=== PATIENT | male | born 1980 | race Hispanic/Latino ===

== ENCOUNTER → 2021-05-28 12:29 | Outpatient (CLI) | payer OTHER, SELFPAY ==
[2021-05-13 10:38] VITALS: BMI 31.1
--- NOTE | 2021-05-29 09:42 | PFT_ITS ---
INTRODUCTION: The patient is a 40-year-old male that presents for pulmonary function studies secondary to a diagnosis of chest pain. Respiratory therapy reported that the patient had difficulty understanding Upper Sorbian and therefore had difficulty with testing. Bronchodilators were used during testing. INTERPRETATION: Forced expiration spirometry demonstrates no evidence of a large airways obstructive ventilatory defect. There was no significant response to aerosolized bronchodilators. Spirograms are of suboptimal quality and terminate prior to 6 seconds, likely underestimating FVC. Body plethysmography was performed and reveals lung volumes to be within normal limits. Diffusing capacity by single breath CO is also within normal limits. IMPRESSION: Grossly normal pulmonary function studies. However, it should be noted that the patient had difficulty with testing.
== END ==
LOC: PSN 12:30
PROVIDERS: PCP Student in an Organized Health Care Education/Training Program; Referring Provider Internal Medicine Critical Care Medicine; Visit Provider Internal Medicine Critical Care Medicine
DX: R07.89 Other chest pain (principal)
CPT/HCPCS: 94060; 94726; 94729

== ENCOUNTER 2021-08-13 19:03 | Emergency (ER) | payer SELFPAY ==
[2021-08-13 19:04] VITALS: BP 151/93; PULSE 127; RESP 18; TEMP 36.2; O2SAT 97; BMI 37.4
--- NOTE | 2021-08-13 20:16 | EX.ED.DYSGE1 ---
HPI History of Present Illness Chief Complaint: Nausea/Vomiting/Diarrhea Detail of Chief Complaint: Vomiting and diarrhea that started around noon today Informant: patient and spouse/S.O. Narrative Narrative: Patient presents to the emergency department vomiting diarrhea this around noon. Patient also complains of a burning upper abdomen pain. Patient states that he ate some tamales last evening and this morning and not feel well at work. Around noon he came home and started vomiting. Patient's had Covid 2 weeks ago and had been fully immunized. Patient also is fully immunized. He has a mild cough. He denies fevers. He has had no prior abdominal surgeries. Prior similar symptoms: No PFSH PFSH Medical History (Reviewed 07/04/21 @ 14:23 by Kadi Pratt SOA INTEGRATION DEVELOPER, SOA INTEGRATION DEVELOPER-C) COVID-19 Diabetes Viral pneumonia Home Medications insulin NPH isoph U-100 human 100 unit/mL subcutaneous suspension See Rx Instructions SUBCUT BID 05/10/21 [History Last Taken Unknown] albuterol sulfate 90 mcg/actuation aerosol inhaler 2 puff INHALATION Q4H PRN #8.5 g 05/13/21 [Rx Last Taken Unknown] fluticasone 500 mcg-salmeterol 50 mcg/dose blistr powdr for inhalation 1 inh INHALATION BID #60 ea 07/04/21 [Rx Last Taken Unknown] ondansetron 4 mg PO Q8H PRN PRN #10 tab 08/13/21 [Rx Last Taken Unknown] Allergy/AdvReac Type Severity Reaction Status Date / Time No Known Allergies Allergy Unverified 08/13/21 19:05 Social History (Reviewed 07/04/21 @ 14:23 by Kadi Pratt SOA INTEGRATION DEVELOPER, SOA INTEGRATION DEVELOPER-C) Smoking Status: Never smoker ROS ROS ED Constitutional Constitutional ED: Reports systems reviewed and no addt'l complaints, except as documented; Denies body ache(s), change in weight or chills Eyes Eyes: Denies acute decrease in peripheral vision, change in vision, double vision or loss of vision ENT ENT ED: Reports none; Denies ear pain, lip swelling, loss taste/smell, neck pain, otalgia or sore throat Cardiovascular Cardiovascular: Reports none; Denies abdominal pain, chest pain with activity, leg edema, lightheadedness, palpitations, rapid heart rate or syncope Respiratory/Chest Respiratory/Chest: Reports none and cough; Denies change in mental status, dry cough, dyspnea, hemoptysis, shortness of breath at rest or shortness of breath with exertion Gastrointestinal Gastrointestinal: Reports none, abdominal pain, diarrhea, nausea and vomiting; Denies change in stool character, hematemesis, hematochezia, melena or rectal bleeding Genitourinary Genitourinary ED: Reports none; Denies abdominal discomfort, anuria, dysuria, genital pain or polyuria Musculoskeletal Musculoskeletal: Reports none; Denies arthralgias, back pain, difficulty walking, extremity pain, muscle weakness or myalgias Integumentary Reports none; Denies abscess or rash Neurologic Neurologic: Reports none; Denies abnormal gait, confusion, focal weakness, frequent falls, headache(s), loss of vision, numbness, paresthesias, radicular pain, vertigo or weakness Psychiatric Psychiatric: Reports systems reviewed and no addt'l complaints, except as documented and none; Denies behavioral changes, confusion, difficulty concentrating, hallucinations, suicidal ideation, tactile hallucinations or visual hallucinations Endocrine Endocrinology: Denies none, cold intolerance, excessive sweating, fatigue or heat intolerance Hematologic/Lymphatic Hematologic/Lymphatic: Reports none; Denies anemia, easy bleeding or easy bruising Allergic/Immunologic Allergic/Immunologic ED: Denies as per HPI, none, lip swelling, mouth swelling, throat swelling, tongue swelling or hives EXAM Physical Exam Const Vital Signs: 08/13/21 19:04 08/13/21 22:55 Temperature 97.1 F L Temperature Source Temporal Pulse Rate 127 H 120 H Respiratory Rate 18 18 Blood Pressure 151/93 H 126/83 H Blood Pressure Mean 112 97 Pulse Ox 97 98 Oxygen Delivery Method Room Air Room Air Positive well nourished and well developed General Appearance ED: well developed and NAD HEENT Reports TM's clear and moist mucous membranes normocephalic and atraumatic; Negative for trauma or tenderness Tympanic Membrane ED: Yes TM's clear Eyes PERRL and EOMs intact bilaterally General Eye ED: Negative for pale conjunctiva or scleral icterus Neck no lymphadenopathy, supple and no JVD General: Negative for tenderness Chest Wall inspection of chest normal and palpation of chest normal Chest: Negative for tenderness Resp normal respiratory effort and clear to auscultation bilaterally Effort and Inspection: Negative for respiratory distress or pain with movement Auscultation: Negative for rhonchi, wheezes or diminished lung sounds Cardio regular rate, regular rhythm, S1 normal heart sound, S2 normal heart sound and no murmurs Peripheral Pulses: pulses 2+ throughout GI normal to inspection, nondistended, normoactive bowel sounds, soft to palpation, non-tender, non-distended and no masses GI Narrative: Patient has tenderness in the epigastric region that is mild. There is mild guarding. There is no rebound, rigidity, or purulent signs. Negative Dasilva sign. No tenderness over McBurney's. Palpation: soft Back/Spine no CVA tenderness and no thoracic nor lumbar tenderness Extremity normal to inspection General Extremety ED: Negative for edema General Extremity: Negative for edema Neuro oriented x3, CN's II-XII intact bilaterally, no sensory deficits noted and gait normal Sensorium / Orientation: awake, alert, oriented to person, oriented to place and oriented to time Motor Exam: strength 5/5 throughout and strength abnormal Psych mental status grossly normal Skin no rashes or lesions noted and no wounds MDM MDM MDM Narrative Medical decision making narrative: IV line established on arrival. Patient was given normal saline and Zofran. Patient received a CT scan of the abdomen pelvis that showed a pancreatic cyst for which they recommended MRI as an outpatient. COVID-19 testing was negative. I suspect patient likely has a viral gastroenteritis. On repeat exam at 2345 he is feeling improved. Describes only minimal abdominal discomfort. 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 Patient is a known diabetic and has not been checking his blood sugars over the last week very much. He does have insulin to take at home. Patient will be given 10 units subcu of Humalog prior to discharge. Lab Data Attestation: I reviewed the patient's lab results. Labs: Laboratory Results - last 24 hr 08/13/21 08/13/21 08/13/21 20:05 20:05 20:25 WBC 15.0 H RBC 5.79 Hgb 16.4 Hct 47.2 MCV 81.5 MCH 28.3 MCHC 34.7 RDW Std Deviation 38.4 RDW Coeff of Donal 13.2 Plt Count 237 MPV 10.4 Immature Gran % (Auto) 0.500 Neut % (Auto) 93.4 H Lymph % (Auto) 3.7 L Patrick % (Auto) 2.1 Eos % (Auto) 0.0 Baso % (Auto) 0.3 Absolute Neuts (auto) 14.1 H Absolute Lymphs (auto) 0.55 L Nucleated RBC % 0 Differential Comment SEE COMMENT Platelet Estimate ADEQUATE Plt Morphology Comment LARGE RBC Morphology N CHROM Anisocytosis 1+ Microcytosis 1+ Sodium Cancelled Potassium Cancelled Chloride Cancelled Carbon Dioxide Cancelled Anion Gap Cancelled BUN Cancelled Creatinine Cancelled Estim Creat Clear Calc Cancelled Est GFR (MDRD) Af Amer Cancelled Est GFR (MDRD) Non-Af Cancelled BUN/Creatinine Ratio Cancelled Glucose Cancelled Lactic Acid 1.4 Calcium Cancelled Total Bilirubin Cancelled AST Cancelled ALT Cancelled Alkaline Phosphatase Cancelled Total Protein Cancelled Albumin Cancelled Globulin Cancelled Albumin/Globulin Ratio Cancelled Lipase Cancelled 08/13/21 21:03 WBC RBC Hgb Hct MCV MCH MCHC RDW Std Deviation RDW Coeff of Donal Plt Count MPV Immature Gran % (Auto) Neut % (Auto) Lymph % (Auto) Patrick % (Auto) Eos % (Auto) Baso % (Auto) Absolute Neuts (auto) Absolute Lymphs (auto) Nucleated RBC % Differential Comment Platelet Estimate Plt Morphology Comment RBC Morphology Anisocytosis Microcytosis Sodium 138 Potassium 4.3 Chloride 101 Carbon Dioxide 23.0 Anion Gap 14 BUN 29 H Creatinine 1.09 Estim Creat Clear Calc 64.64 Est GFR (MDRD) Af Amer 95 Est GFR (MDRD) Non-Af 78 BUN/Creatinine Ratio 26.6 H Glucose 429 H Lactic Acid Calcium 10.3 H Total Bilirubin 0.90 AST 30 ALT 48 Alkaline Phosphatase 134 H Total Protein 8.3 H Albumin 4.1 Globulin 4.2 Albumin/Globulin Ratio 1.0 Lipase 31 L Radiography Diagnostic Testing: Radiology Impression Abdomen/Pelvis CT 08/13/21 21:23 IMPRESSION: Indeterminate 2.6 x 1.2 x 2.6 cm cystic focus within the pancreatic tail, recommend MRI of the abdomen with contrast for further characterization. Fatty infiltration of the liver. Indeterminate groundglass opacities within the lower lobes, a nonspecific finding may be secondary to underlying edema and/or an infectious process. Electronically Signed: Alicia Pickens MD at 22:11 EDT Tel , Service support , Discharge Plan Triage Chief Complaint: Nausea/Vomiting/Diarrhea ED Provider: Fernandez Crandall Dx/Rx/DC Orders Clinical Impression: Viral gastroenteritis, Abdominal pain Prescriptions: New ondansetron [ondansetron] 4 MG tablet 4 mg PO Q8H PRN PRN (Reason: Nausea) Qty: 10 RF: 0 No Action Humulin N NPH U-100 Insulin 100 unit/mL suspension See Rx Instructions subcut BID RF: 0 albuterol sulfate 90 mcg/actuation HFA aerosol inhaler 2 puff inhalation Q4H PRN (Reason: shortness of breath or wheezing) Qty: 8.5 RF: 3 fluticasone propion-salmeterol [Wixela Inhub] 500-50 mcg/dose blister with device 1 inh inhalation BID Qty: 60 RF: 3 Primary Care Provider: Care Physician,No Primary Referrals: Navjot Dalal MD [STAFF PHYSICIAN] - 3-5 Days Care Physician,No Primary [Primary Care Provider] - Disposition Disposition: Home, Self Care
[2021-08-13 20:26] LABS: Absolute Lymphocyte Count 0.55 X10^3/uL (0.83-4.51); Absolute Neutrophil Count 14.1 X10^3/uL (2.0-7.7); Basophil# 0.04 X10^3/uL; Basophil% 0.3 % (0-1); Hematocrit 47.2 % (40-54); Hemoglobin 16.4 g/dL (13.0-16.5); Lymphocyte # 0.55 X10^3/ul (0.83-4.51); Lymphocyte % 3.7 % (19-41); Mean Corp Hgb Conc 34.7 g/dL (32-36); Mean Corpuscular Hgb 28.3 pg (27.0-32.0); Mean Corpuscular Volume 81.5 fL (80-94); Mean Platelet Vol. 10.4 fl (6.2-12.0); Monocyte# 0.31 X10^3/uL; Monocyte% 2.1 % (0-10); NRBC Flagged by Analyzer 0 % (0-5); Neutrophil # 14.05 X10^3/uL (2.7-7.7); Neutrophil % 93.4 % (47-70); POSITIVE DIFFERENTIAL YES; Platelet Count 237 K/mm3 (150-450); RBC Distribution Width CV 13.2 % (11.6-14.6); RBC Distribution Width SD 38.4 fl (35.1-43.9); Red Blood Count 5.79 M/mm3 (4.6-6.2)
[2021-08-13 20:28] LABS: Differential Indicated SCAN CRITERIA MET
[2021-08-13] MEDS: 0.9% Normal Saline 1,000 ML 1000 ML IV (20:29)
[2021-08-13] MEDS: Ondansetron 4 MG/2 ML Vial IV (20:29)
--- NOTE | 2021-08-13 21:23 | CT_ITS ---
STUDY: CT ABDOMEN AND PELVIS WITHOUT CONTRAST REASON FOR EXAM: Male, 41 years old. Abdominal pain RADIATION DOSAGE (If Supplied By Facility): CTDIvol = ( 8.87 ) mGy, DLP = ( 469.98 ) mGycm TECHNIQUE: Transaxial images were obtained from the dome of the diaphragm to the symphysis pubis without oral contrast, and without intravenous contrast. Sagittal and coronal images were reconstructed. Individualized dose optimization techniques were used for this CT. COMPARISON: None. FINDINGS: Motion artifact grades anatomic detail. There are groundglass opacities within the visualized lower lobes. The visualized portions of the heart are within normal limits. The lack of intravenous contrast limits evaluation of solid visceral organs. There is decreased attenuation of the liver consistent with steatosis. Normal gallbladder and extrahepatic biliary system. Normal spleen. Within the tail of the pancreas there is a 2.6 x 1.2 x 2.3 cm round low attenuation focus associated with scattered peripheral calcifications. There are scattered calcifications within the left posterior peritoneal cavity. Normal bilateral adrenal glands. Normal right kidney. Normal left kidney. Normal visualized stomach. Normal small intestine. Normal colon. The appendix is visualized and appears normal. Normal abdominal aorta. Normal inferior vena cava. Normal retroperitoneum. Normal urinary bladder. Normal abdominal wall. There are diffuse degenerative changes of the visualized lumbar spine. CT/Abdomen/Pelvis without Cont IMPRESSION: Indeterminate 2.6 x 1.2 x 2.6 cm cystic focus within the pancreatic tail, recommend MRI of the abdomen with contrast for further characterization. Fatty infiltration of the liver. Indeterminate groundglass opacities within the lower lobes, a nonspecific finding may be secondary to underlying edema and/or an infectious process. Electronically Signed: Alicia Pickens MD at 22:11 EDT Tel , Service support ,
[2021-08-13 21:28] LABS: Anisocytosis 1+; Microcytosis 1+; Platelet Estimate ADEQUATE (ADEQ); Platelet Morphology LARGE; Red Cell Morphology N CHROM NORMAL (NORM C&C)
[2021-08-13 21:34] LABS: Lactic Acid 1.4 mmol/L (0.4-1.9)
[2021-08-13 21:47] LABS: AST(SGOT) 30 U/L (15-37); Alanine Aminotransfer ALT/SGPT 48 U/L (16-61); Albumin, Serum 4.1 g/dL (3.2-5.0); Alkaline Phosphatase 134 U/L (45-117); Anion Gap 14 (5-15); BUN 29 mg/dL (7-18); BUN/Creat Ratio 26.6 RATIO (10-20); Calcium,Total 10.3 mg/dL (8.5-10.1); Chloride 101 mmol/L (98-107); Creatinine, Serum 1.09 mg/dL (0.70-1.30); EST Glomerular Filtration Rate 78 mL/min (>60); Est Glom Filt Rate - Afr Amer 95 mL/min (>60); Estimated Creatinine Clearance 64.64 ml/min; Globulin 4.2 g/dL (2.2-4.2); Glucose 429 mg/dL (74-106); Lipase 31 U/L (73-393); Potassium 4.3 mmol/L (3.5-5.1); Protein, Total 8.3 g/dL (6.4-8.2); Sodium Level 138 mmol/L (136-145)
[2021-08-13 22:55] VITALS: BP 126/83; PULSE 120; RESP 18; O2SAT 98
[2021-08-13] MEDS: Insulin Lispro 100 UNIT/ML INSULN.PEN 10 UNIT SC (23:54)
[2021-08-13 23:57] VITALS: BP 123/79; PULSE 89; RESP 15; O2SAT 99
== END 2021-08-13 23:57 | disposition home or self-care (01) ==
PROVIDERS: Emergency Provider Emergency Medicine
DX: A08.4 Viral intestinal infection, unspecified (principal); K86.2 Cyst of pancreas; K76.0 Fatty (change of) liver, not elsewhere classified; E11.9 Type 2 diabetes mellitus without complications; Z79.4 Long term (current) use of insulin; Z86.16 Personal history of COVID-19
CPT/HCPCS: 74176; 80053; 83605; 83690; 85025; 87426; 96361; 96374; 99283; J7030; A4216; J2405

== ENCOUNTER 2022-04-18 12:38 | Emergency (ER) | payer SELFPAY ==
[2022-04-18 12:40] VITALS: BP 146/80; PULSE 87; RESP 18; TEMP 36.1; O2SAT 97; BMI 34.7
--- NOTE | 2022-04-18 14:29 | EDS_ITS ---
HPI History of Present Illness Chief Complaint: Eye Problem Narrative Narrative: 40-year-old male presenting with eye irritation, redness, sneezing. Interpretation is by his who is Chadian-speaking. Patient states that he has not taken anything for allergies. He denies any injuries to his eyes. He is not had any crusting or weeping of his eyes. He does have blurry vision but states on 04/04/2022 he was seen by an supervisor [employer] and told he had diabetic retinopathy. He states that he was post to follow-up with a collection technician but this has not been done yet. Patient is in between having insurance cover his bills. [facility] Medical History Diabetes mellitus Leukocytosis (leucocytosis) Mediastinal lymphadenopathy Pneumonia Pulmonary embolism Home Medications loratadine [Claritin] 10 mg PO DAILY #30 tab 04/18/22 [Rx Last Taken Unknown] naphazoline-pheniramine [Allergy Eye (naphazoline-phen)] 1 drp EACH EYE BID PRN #15 ml 04/18/22 [Rx Last Taken Unknown] Allergy/AdvReac Type Severity Reaction Status Date / Time No Known Allergies Allergy Verified 04/18/22 12:40 Social History Smoking Status: Never smoker alcohol intake: never substance use type: does not use diet: diabetic do you feel safe at home: Yes ROS ROS ED Constitutional Constitutional ED: Denies chills or fever(s) Eyes Eyes: Reports other Details: Eye irritation, redness ENT ENT ED: Denies rhinorrhea or sore throat Cardiovascular Cardiovascular: Denies chest pain or palpitations Respiratory/Chest Respiratory/Chest: Denies cough or dyspnea Gastrointestinal Gastrointestinal: Denies abdominal pain or nausea Genitourinary Genitourinary ED: Denies dysuria or hematuria Musculoskeletal Musculoskeletal: Denies myalgias Integumentary Denies rash Neurologic Neurologic: Denies headache(s) or weakness Psychiatric Psychiatric: Denies anxiety or depression EXAM Physical Exam Const Vital Signs: 04/18/22 12:40 Temperature 96.9 F L Temperature Source Temporal Pulse Rate 87 Respiratory Rate 18 Blood Pressure 146/80 H Blood Pressure Mean 102 Pulse Ox 97 Oxygen Delivery Method Room Air Positive well nourished General Appearance ED: NAD Eyes General Eye ED: Yes normal appearance of both eyes and normal light reflex Visual Field: No peripheral vision loss, No central vision loss and No left visual field cut Eyelid: eyelids normal Conjunctiva: conjunctiva normal Sclera: sclera normal Cornea: cornea normal Pupil: PERRL and accommodation reflex normal Resp normal respiratory effort and clear to auscultation bilaterally Cardio regular rate and regular rhythm Neuro oriented x3 Sensorium / Orientation: alert Psych Mood & Affect: depressed Skin Lesions: no lesions Rashes: no rashes MDM MDM MDM Narrative Medical decision making narrative: Patient has known diabetic retinopathy. He is post follow-up with ophthalmology for this. He states he does not have a name for an collection technician and is currently not able to follow-up due to healthcare insurance issues. Patient was given an collection technician. It does sound like he is having some allergy symptoms as well so we will start him on Claritin and give him some eyedrops to help with irritation. Patient and are amenable to this. Patient stable for discharge. Impression: 1 diabetic retinopathy 2. Seasonal Lab Data Attestation: I reviewed the patient's lab results. Discharge Plan Triage Chief Complaint: Eye Problem Other Complaint: Headache ED Provider: Cory Rodriguez Dx/Rx/DC Orders Instructions: ED Diabetic Retinopathy, ED Seasonal Allergy Prescriptions: New loratadine [Claritin] 10 mg tablet 10 mg PO DAILY Qty: 30 RF: 0 Allergy Eye (naphazoline-phen) 0.025-0.3 % drops 1 drp EACH EYE BID PRN (Reason: eye irritation) Qty: 15 RF: 0 Primary Care Provider: Armando Godfrey Referrals: Armando Godfrey DO [Primary Care Provider] - Disposition Disposition: Home, Self Care
[2022-04-18 15:07] VITALS: BP 134/78; PULSE 78; RESP 14; TEMP 36.9; O2SAT 98
== END 2022-04-18 15:08 | disposition home or self-care (01) ==
LOC: ED 14:54
PROVIDERS: Emergency Provider Student in an Organized Health Care Education/Training Program; PCP Student in an Organized Health Care Education/Training Program; Visit Provider Student in an Organized Health Care Education/Training Program
DX: J30.2 Other seasonal allergic rhinitis (principal); E11.319 Type 2 diabetes mellitus with unspecified diabetic retinopathy without macular edema
CPT/HCPCS: 99282

== ENCOUNTER 2022-05-13 05:19 | Emergency (ER) | payer SELFPAY ==
[2022-05-13 05:21] VITALS: BP 126/86; PULSE 109; RESP 18; TEMP 36.4; O2SAT 96; BMI 35.6
--- NOTE | 2022-05-13 05:42 | EKG12_ITS ---
Test Reason : COUGH Blood Pressure : / mmHG Vent. Rate : 099 BPM Atrial Rate : 099 BPM P-R Int : 126 ms QRS Dur : 080 ms QT Int : 344 ms P-R-T Axes : 046 029 -01 degrees QTc Int : 441 ms Normal sinus rhythm Normal ECG Confirmed by GONZÁLEZ MAURICIO, CHIOMA ([id number]), writer editor JANETT JEFFERSON ([id number]) on 05/14/2022 10:00:05 AM Referred By: PL Confirmed By:CHIOMA CLAUDIO MD
--- NOTE | 2022-05-13 05:42 | RAD_ITS ---
STUDY: X-RAY CHEST REASON FOR EXAM: Male, 41 years old. cough TECHNIQUE: PA and lateral. COMPARISON: None. FINDINGS: LUNGS: No consolidation. No pneumothorax. MEDIASTINUM: Unremarkable. CARDIAC SILHOUETTE: Not enlarged. BONES AND SOFT TISSUES: No acute abnormalities. RAD/Chest PA and Lateral IMPRESSION: No evidence of active intrathoracic disease. Electronically Signed: Araceli Mcginnis MD at 6:32 EDT ,
--- NOTE | 2022-05-13 05:43 | EX.ED.DYSGE1 ---
HPI History of Present Illness Chief Complaint: Cold Sx Informant: patient Narrative Narrative: Patient presents with about 3 days of nonproductive cough sore throat sneezing and nasal congestion. Does not know if he has had fevers. No myalgias. No nausea vomiting diarrhea. No pains. No chest pain. No hemoptysis. No actual sputum production. His is having the same symptoms as he has. Nothing makes it better or worse but nothing has been tried. He has used inhalers before but does not have any now. He has heard some wheezing at times. [facility] Medical History COVID-19 Diabetes Diabetes mellitus Leukocytosis (leucocytosis) Mediastinal lymphadenopathy Pneumonia Pulmonary embolism Viral pneumonia Home Medications insulin NPH isoph U-100 human 100 unit/mL subcutaneous suspension See Rx Instructions SUBCUT BID 05/10/21 [History Last Taken Unknown] albuterol sulfate 90 mcg/actuation aerosol inhaler 2 puff INHALATION Q4H PRN #8.5 g 05/13/21 [Rx Last Taken Unknown] fluticasone 500 mcg-salmeterol 50 mcg/dose blistr powdr for inhalation 1 inh INHALATION BID #60 ea 07/04/21 [Rx Last Taken Unknown] ondansetron 4 mg PO Q8H PRN PRN #10 tab 08/13/21 [Rx Last Taken Unknown] loratadine [Claritin] 10 mg PO DAILY #30 tab 04/18/22 [Rx Last Taken Unknown] naphazoline-pheniramine [Allergy Eye (naphazoline-phen)] 1 drp EACH EYE BID PRN #15 ml 04/18/22 [Rx Last Taken Unknown] albuterol sulfate [Ventolin HFA] 2 puff INHALATION Q4H PRN PRN #1 inhaler 05/13/22 [Rx Last Taken Unknown] benzonatate 200 mg PO TID PRN PRN #20 cap 05/13/22 [Rx Last Taken Unknown] Allergy/AdvReac Type Severity Reaction Status Date / Time No Known Allergies Allergy Verified 05/13/22 05:21 Social History Smoking Status: Never smoker alcohol intake: never substance use type: does not use diet: diabetic do you feel safe at home: Yes ROS ROS ED Constitutional Constitutional ED: Denies fever(s) Eyes Eyes: Denies blurry vision ENT ENT ED: Reports rhinorrhea and sore throat; Denies ear pain Cardiovascular Cardiovascular: Denies chest pain or palpitations Respiratory/Chest Respiratory/Chest: Reports cough and other Details: Occasional wheezing ; Denies dyspnea or sputum Gastrointestinal Gastrointestinal: Denies abdominal pain, diarrhea, nausea or vomiting Genitourinary Genitourinary ED: Denies dysuria Musculoskeletal Musculoskeletal: Denies myalgias Integumentary Denies rash Neurologic Neurologic: Denies headache(s) Endocrine Endocrinology: Denies polydipsia or polyuria Allergic/Immunologic Allergic/Immunologic ED: Denies urticaria EXAM Physical Exam Const Vital Signs: 05/13/22 05:21 05/13/22 05:26 05/13/22 06:05 Temperature 97.6 F L Temperature Source Temporal Pulse Rate 109 H 80 Respiratory Rate 18 16 Respiratory Effort Normal Respiratory Depth Normal Respiratory Pattern Normal Blood Pressure 126/86 H Blood Pressure Mean 99 Pulse Ox 96 Oxygen Delivery Method Room Air Room Air Positive well nourished and well developed Constitutional Narrative: Patient does have a very frequent dry cough while I am in the room. General Appearance ED: well developed and NAD; Negative for cyanotic or diaphoretic HEENT Reports moist mucous membranes HEENT Narrative: Note Steve continues. He does have clear rhinorrhea. His throat is slightly erythematous but not enlarged and there is no exudate. Negative for trauma or tenderness Eyes PERRL and EOMs intact bilaterally Neck no JVD Chest Wall inspection of chest normal Resp normal respiratory effort Resp Narrative: Patient does have a frequent very dry cough. He has expiratory wheeze especially end expiratory and with any forced expiration. Auscultation: wheezes; Negative for rales or rhonchi Cardio regular rate and regular rhythm GI normal to inspection, nondistended, normoactive bowel sounds and non-tender Palpation: soft Back/Spine no CVA tenderness Extremity General Extremety ED: Negative for edema or tenderness General Extremity: Negative for edema Neuro Sensorium / Orientation: alert Psych mental status grossly normal Skin no rashes or lesions noted MDM MDM MDM Narrative Medical decision making narrative: COVID and influenza are negative. Chest x-ray shows no acute process. Patient feels better with a breathing treatment. Although he does not have a history of asthma he has used breathing treatments before when he is sick. I will get him something for his cough. We will get inhaler. We discussed reasons to return. I do not think he needs antibiotics now. Lab Data Attestation: I reviewed the patient's lab results. Radiography Diagnostic Testing: Clinical Impression(s) from Imaging Studies Chest X-Ray 05/13/22 05:42 IMPRESSION: No evidence of active intrathoracic disease. Electronically Signed: Araceli Mcginnis MD at 6:32 EDT , EKG Initial EKG: Comments: EKG done for cough and a 41-year-old male. EKG read by me shows normal sinus rhythm with overall rate of 99. No ectopy. No acute ST elevation or depression. DE interval, QRS Discharge Plan Triage Chief Complaint: Cold Sx ED Provider: Wally Colon Dx/Rx/DC Orders Clinical Impression: Viral URI with cough, Acute bronchospasm Instructions: ED URI, Viral W/ Wheezing (Adult) Prescriptions: New benzonatate [benzonatate] 100 MG capsule 200 mg PO TID PRN PRN (Reason: Cough) Qty: 20 RF: 0 albuterol sulfate [Ventolin HFA] 1 INHALER inhaler 2 puff inhalation Q4H PRN PRN (Reason: Wheezing) Qty: 1 RF: 0 No Action Humulin N NPH U-100 Insulin 100 unit/mL suspension See Rx Instructions subcut BID RF: 0 albuterol sulfate 90 mcg/actuation HFA aerosol inhaler 2 puff inhalation Q4H PRN (Reason: shortness of breath or wheezing) Qty: 8.5 RF: 3 fluticasone propion-salmeterol [Wixela Inhub] 500-50 mcg/dose blister with device 1 inh inhalation BID Qty: 60 RF: 3 ondansetron [ondansetron] 4 MG tablet 4 mg PO Q8H PRN PRN (Reason: Nausea) Qty: 10 RF: 0 loratadine [Claritin] 10 mg tablet 10 mg PO DAILY Qty: 30 RF: 0 Allergy Eye (naphazoline-phen) 0.025-0.3 % drops 1 drp EACH EYE BID PRN (Reason: eye irritation) Qty: 15 RF: 0 Primary Care Provider: Care Physician,No Primary Referrals: Fast,Perla, DO [NON-STAFF] - 3-5 Days if not improving Care Physician,No Primary [Primary Care Provider] - Disposition Disposition: Home, Self Care
[2022-05-13] MEDS: Ipratropium/Albuterol Sulfate 3 ML AMPUL.NEB INHALATION (06:01)
[2022-05-13 06:05] VITALS: PULSE 80; RESP 16
[2022-05-13 06:57] VITALS: PULSE 98; RESP 18; O2SAT 98
== END 2022-05-13 06:58 | disposition home or self-care (01) ==
PROVIDERS: Emergency Provider Emergency Medicine; Visit Provider Emergency Medicine
DX: J06.9 Acute upper respiratory infection, unspecified (principal); E11.9 Type 2 diabetes mellitus without complications; Z79.4 Long term (current) use of insulin; J98.01 Acute bronchospasm; Z86.16 Personal history of COVID-19
CPT/HCPCS: 71046; 87428; 93005; 94640; 99282

== ENCOUNTER 2022-06-24 06:56 | Emergency (ER) | payer OTHER, SELFPAY ==
[2022-06-24 06:58] VITALS: BP 176/85; PULSE 85; RESP 18; TEMP 35.8; O2SAT 98; BMI 37.2
--- NOTE | 2022-06-24 07:06 | CT_ITS ---
STUDY: CT BRAIN WITHOUT CONTRAST REASON FOR EXAM: Male, 42 years old. injury RADIATION DOSAGE (If Supplied By Facility): CTDIvol = ( 44.99 ) mGy, DLP = ( 796.11 ) mGycm TECHNIQUE: Transaxial CT imaging of the brain was performed without administration of intravenous contrast material. Individualized dose optimization techniques were used for this CT. COMPARISON: No relevant priors. FINDINGS: Small right frontal superficial scalp hematoma. Normal calvarium. Normal size ventricles and extra-axial spaces for the patient''s age. Normal white matter tracts of the cerebral hemispheres. Normal basal ganglia and thalami. Normal brainstem. Normal cerebellum. There is no intracranial hemorrhage. There are no findings of an acute ischemic infarction. Bilateral ethmoid and maxillary sinus mucoperiosteal thickening. Left maxillary posterior molar alveolar root odontogenic abscess is partially seen CT/Brain/Head without Contrast IMPRESSION: No evidence of acute intracranial hemorrhage or injury. Right posterior parietal small superficial scalp hematoma without underlying fracture. Scattered sinus disease. Left maxillary posterior molar alveolar root odontogenic abscess partially seen. Electronically Signed: Leopoldo Carver MD at 8:01 EDT ,
--- NOTE | 2022-06-24 07:06 | RAD_ITS ---
STUDY: X-RAY - LEFT FOOT CLINICAL: Male, 42 years old. injury. Bruising over entire leg. Run over by a tow mower TECHNIQUE: 3 view(s) of the foot. COMPARISON: Tibiofibular radiograph on same day. FINDINGS: Diffuse lower leg and ankle edema. Peripheral atherosclerosis. No fracture. No berny dislocation. No erosion. Mild first metatarsophalangeal joint degenerative change. RAD/Foot min 3 Views IMPRESSION: Lower leg and ankle edema. Peripheral atherosclerosis. No acute osseous finding. Electronically Signed: Leopoldo Carver MD at 8:17 EDT ,
--- NOTE | 2022-06-24 07:06 | RAD_ITS ---
STUDY: X-RAY - LEFT TIBIA AND FIBULA REASON FOR EXAM: Male, 42 years old. injury BRUISING OVER ENTIRE LEG, RUN OVER BY TOW MOTOR TECHNIQUE: 2 view(s) of the tibia and fibula were obtained. COMPARISON: None. FINDINGS: BONES: No fracture demonstrated. JOINTS: No dislocation. SOFT TISSUES: Soft tissue swelling especially about the ankle. Calcifications mainly anteriorly. RAD/Tibia & Fibula 2 Views IMPRESSION: Soft tissue swelling. No evidence of fracture. Electronically Signed: Araceli Mcginnis MD at 7:49 EDT ,
--- NOTE | 2022-06-24 07:07 | EX.ED.DYSGE1 ---
HPI History of Present Illness Chief Complaint: Lower Extremity Injury Informant: patient Onset/Context/Timing Onset: Today Current Severity: Moderate Maximum Severity: Moderate Narrative Narrative: Patient presents after injury at work. Patient states that he was hit in the back of the head by a tow motor causing him to fall. His left foot was caught and bent awkwardly. He has pain and swelling around his left ankle. [facility] Medical History COVID-19 Diabetes mellitus Pulmonary embolism Home Medications insulin NPH isoph U-100 human 100 unit/mL subcutaneous suspension (Humulin N NPH U-100 Insulin (isophane susp)) See Rx Instructions subcut BID 05/10/21 [History Last Taken Unknown] albuterol sulfate 90 mcg/actuation aerosol inhaler 2 puff inhalation Q4H PRN shortness of breath or wheezing #8.5 grams 05/13/21 [Rx Last Taken Unknown] fluticasone 500 mcg-salmeterol 50 mcg/dose blistr powdr for inhalation (Wixela Inhub) 1 inh inhalation BID #60 ea 07/04/21 [Rx Last Taken Unknown] ondansetron 4 mg disintegrating tablet 4 mg PO Q8H PRN PRN Nausea #10 tabs 08/13/21 [Rx Last Taken Unknown] loratadine 10 mg tablet (Claritin) 10 mg PO DAILY #30 tabs 04/18/22 [Rx Last Taken Unknown] naphazoline 0.025 %-pheniramine 0.3 % eye drops (Allergy Eye (naphazoline-pheniramine)) 1 drp EACH EYE BID PRN eye irritation #15 mL 04/18/22 [Rx Last Taken Unknown] albuterol sulfate 90 mcg/actuation aerosol inhaler (Ventolin HFA) 2 puff inhalation Q4H PRN PRN Wheezing ##1 05/13/22 [Rx Last Taken Unknown] benzonatate 100 mg capsule 200 mg PO TID PRN PRN Cough #20 caps 05/13/22 [Rx Last Taken Unknown] hydrocodone-acetaminophen 5-325mg 5mg-325mg 1 tab PO Q6H PRN pain 3 days #10 tabs 06/24/22 [Rx Last Taken Unknown] naproxen 500 mg tablet (Naprosyn) 500 mg PO BID PRN pain #20 tabs 06/24/22 [Rx Last Taken Unknown] Allergy/AdvReac Type Severity Reaction Status Date / Time No Known Allergies Allergy Verified 05/13/22 05:21 Social History Smoking Status: Never smoker alcohol intake: never substance use type: does not use diet: diabetic do you feel safe at home: Yes ROS ROS ED Constitutional Constitutional ED: Denies chills or fever(s) Eyes Eyes: Denies change in vision or discharge from eye(s) ENT ENT ED: Denies discharge from eye(s), rhinorrhea or sore throat Cardiovascular Cardiovascular: Denies chest pain or palpitations Respiratory/Chest Respiratory/Chest: Denies cough or dyspnea Gastrointestinal Gastrointestinal: Denies abdominal pain, diarrhea, nausea or vomiting Genitourinary Genitourinary ED: Denies difficulty urinating or dysuria Musculoskeletal Musculoskeletal: Reports extremity pain; Denies back pain Integumentary Denies Abrasions or rash Neurologic Neurologic: Reports headache(s); Denies weakness Allergic/Immunologic Allergic/Immunologic ED: Denies lip swelling or urticaria EXAM Physical Exam Const Vital Signs: 06/24/22 06:58 06/24/22 10:20 Temperature 96.4 F L Temperature Source Temporal Pulse Rate 85 72 Respiratory Rate 18 15 Blood Pressure 176/85 H 124/69 H Blood Pressure Mean 115 Pulse Ox 98 96 Oxygen Delivery Method Room Air Positive well nourished and well developed General Appearance ED: well developed HEENT Reports normocephalic and head/scalp atraumatic Eyes PERRL and EOMs intact bilaterally Neck supple Chest Wall inspection of chest normal and palpation of chest normal Resp normal respiratory effort and clear to auscultation bilaterally Cardio regular rate and regular rhythm GI normal to inspection, nondistended, normoactive bowel sounds Palpation: soft Back/Spine Negative for no CVA tenderness Extremity Extremity Narrative: Edema tenderness palpation around the left ankle. Mild tenderness over the foot. Strong distal pulses. No tenderness of the left knee. Neuro oriented x3 and no sensory deficits noted Sensorium / Orientation: alert Psych mental status grossly normal Skin no rashes or lesions noted MDM MDM MDM Narrative Medical decision making narrative: Patient given [place] for pain. CT scan of the head obtained along with left tib-fib and left foot x-rays. Lab Data Attestation: I reviewed the patient's lab results. Radiography Diagnostic Testing: Clinical Impression(s) from Imaging Studies Brain CT 06/24/22 07:06 IMPRESSION: No evidence of acute intracranial hemorrhage or injury. Right posterior parietal small superficial scalp hematoma without underlying fracture. Scattered sinus disease. Left maxillary posterior molar alveolar root odontogenic abscess partially seen. Electronically Signed: Leopoldo Carver MD at 8:01 EDT , Foot X-Ray 06/24/22 07:06 IMPRESSION: Lower leg and ankle edema. Peripheral atherosclerosis. No acute osseous finding. Electronically Signed: Leopoldo Carver MD at 8:17 EDT , Tibia/Fibula X-Ray 06/24/22 07:06 IMPRESSION: Soft tissue swelling. No evidence of fracture. Electronically Signed: Araceli Mcginnis MD at 7:49 EDT , Treatment and Re-Evaluation Narrative: CT scan of the head reveals small superficial scalp hematoma with no underlying fracture. No acute intracranial abnormality. Foot and lower leg x-rays obtained and per my interpretation reveal no obvious fracture. Radiology interpretation is reviewed and concurs. Test results discussed with the patient. He is written for Naprosyn with [employer] for breakthrough pain at home. He is placed in a walking boot and given crutches. He will follow-up with corporate care. Discharge Plan Triage Chief Complaint: Lower Extremity Injury ED Provider: Fozia Gibbs Dx/Rx/DC Orders Clinical Impression: Left ankle sprain, Closed head injury Instructions: ED Head Injury (Adult), ED Ankle Sprain (Adult) Prescriptions: New naproxen [Naprosyn] 500 mg tablet 500 mg PO BID PRN (Reason: pain) Qty: 20 0RF hydrocodone-acetaminophen 5-325 mg tablet 1 tab PO Q6H PRN (Reason: pain) 3 Days Qty: 10 0RF No Action Humulin N NPH U-100 Insulin 100 unit/mL suspension See Rx Instructions subcut BID Rx Instructions: 28 units QAM 25 units Qpm subcut twice a day; albuterol sulfate 90 mcg/actuation HFA aerosol inhaler 2 puff inhalation Q4H PRN (Reason: shortness of breath or wheezing) Qty: 8.5 3RF fluticasone propion-salmeterol [Wixela Inhub] 500-50 mcg/dose blister with device 1 inh inhalation BID Qty: 60 3RF ondansetron [ondansetron] 4 MG tablet 4 mg PO Q8H PRN PRN (Reason: Nausea) Qty: 10 0RF loratadine [Claritin] 10 mg tablet 10 mg PO DAILY Qty: 30 0RF Allergy Eye (naphazoline-phen) 0.025-0.3 % drops 1 drp EACH EYE BID PRN (Reason: eye irritation) Qty: 15 0RF benzonatate [benzonatate] 100 MG capsule 200 mg PO TID PRN PRN (Reason: Cough) Qty: 20 0RF albuterol sulfate [Ventolin HFA] 1 INHALER inhaler 2 puff inhalation Q4H PRN PRN (Reason: Wheezing) Qty: 1 0RF Stand Alone Forms: Work Status Form Primary Care Provider: Care Physician,No Primary Referrals: Corporate,Care [GROUP OF PHYSICIANS] - 2 Days Care Physician,No Primary [Primary Care Provider] - Disposition Disposition: Home, Self Care Discharge Date/Time: 06/24/22 10:21
[2022-06-24] MEDS: HYDROcodone Bitartrate/Apap 5/325 Tablet PO (07:17)
[2022-06-24 10:20] VITALS: BP 124/69; PULSE 72; RESP 15; O2SAT 96
== END 2022-06-24 10:21 | disposition home or self-care (01) ==
PROVIDERS: Emergency Provider Emergency Medicine; Visit Provider Emergency Medicine
DX: S93.402A Sprain of unspecified ligament of left ankle, initial encounter (principal); E11.9 Type 2 diabetes mellitus without complications; Z79.4 Long term (current) use of insulin; S00.03XA Contusion of scalp, initial encounter; W31.89XA Contact with other specified machinery, initial encounter; Y99.0 Civilian activity done for income or pay; Z86.16 Personal history of COVID-19
CPT/HCPCS: 70450; 73590; 73630; 99283; J7030; A4216

== ENCOUNTER 2022-07-04 09:24 | Emergency (ER) | payer OTHER, SELFPAY ==
[2022-07-04 09:25] VITALS: BP 159/76; PULSE 87; RESP 18; TEMP 36.4; O2SAT 99; BMI 36.6
--- NOTE | 2022-07-04 10:17 | ED.VIS.LOWEX ---
HPI History of Present Illness Chief Complaint: Wound Detail of Chief Complaint: wound pain/redness Informant: patient and family Onset/Context/Timing Onset: Days (3) Context: Gradual Onset Current Severity: Moderate Maximum Severity: Moderate Worsened by: walking, palpation Relieved by: leaving alone, rest Associated Symptoms Associated Symptoms: Negative for Parasthesia, Weakness or Loss of Funtion Narrative Narrative: Patient had an injury at work around 2 weeks ago, a tow motor/forklift accidentally struck him in the leg sustaining a wound, and he injured his ankle, he thinks it was sprained he states it was not broken, he was seen here. He is in a boot. He has been having pain ever since the accident in the leg and ankle, but it has been hurting more around the wound, which is posterior, along with redness and swelling for the past 3 days. There has been no drainage, bleeding, or fever or systemic symptoms. [facility] Medical History COVID-19 Diabetes mellitus Pulmonary embolism Home Medications insulin NPH isoph U-100 human 100 unit/mL subcutaneous suspension (Humulin N NPH U-100 Insulin (isophane susp)) See Rx Instructions subcut BID 05/10/21 [History Last Taken Unknown] albuterol sulfate 90 mcg/actuation aerosol inhaler 2 puff inhalation Q4H PRN shortness of breath or wheezing #8.5 grams 05/13/21 [Rx Last Taken Unknown] fluticasone 500 mcg-salmeterol 50 mcg/dose blistr powdr for inhalation (Wixela Inhub) 1 inh inhalation BID #60 ea 07/04/21 [Rx Last Taken Unknown] ondansetron 4 mg disintegrating tablet 4 mg PO Q8H PRN PRN Nausea #10 tabs 08/13/21 [Rx Last Taken Unknown] loratadine 10 mg tablet (Claritin) 10 mg PO DAILY #30 tabs 04/18/22 [Rx Last Taken Unknown] naphazoline 0.025 %-pheniramine 0.3 % eye drops (Allergy Eye (naphazoline-pheniramine)) 1 drp EACH EYE BID PRN eye irritation #15 mL 04/18/22 [Rx Last Taken Unknown] albuterol sulfate 90 mcg/actuation aerosol inhaler (Ventolin HFA) 2 puff inhalation Q4H PRN PRN Wheezing ##1 05/13/22 [Rx Last Taken Unknown] benzonatate 100 mg capsule 200 mg PO TID PRN PRN Cough #20 caps 05/13/22 [Rx Last Taken Unknown] naproxen 500 mg tablet (Naprosyn) 500 mg PO BID PRN pain #20 tabs 06/24/22 [Rx Last Taken Unknown] cephalexin 500 mg capsule 500 mg PO Q6 #40 CAPSULES 07/04/22 [Rx Last Taken Unknown] hydrocodone-acetaminophen 5-325mg 5mg-325mg 1 tab PO Q6H PRN pain 3 days #10 tabs 07/04/22 [Rx Last Taken Unknown] Allergy/AdvReac Type Severity Reaction Status Date / Time No Known Allergies Allergy Verified 05/13/22 05:21 Social History Smoking Status: Never smoker alcohol intake: never substance use type: does not use diet: diabetic do you feel safe at home: Yes ROS ROS ED Constitutional Constitutional ED: Denies chills or fever(s) Musculoskeletal Musculoskeletal: Reports extremity pain; Denies neck pain Integumentary Reports wounds; Denies Abrasions or rash Neurologic Neurologic: Denies paresthesias or weakness EXAM Physical Exam Const Vital Signs: 07/04/22 09:25 Temperature 97.6 F L Temperature Source Temporal Pulse Rate 87 Respiratory Rate 18 Blood Pressure 159/76 H Blood Pressure Mean 103 Pulse Ox 99 Oxygen Delivery Method Room Air Positive well nourished and well developed General Appearance ED: well developed and NAD Neck full ROM and supple Back/Spine normal ROM and normal to inspection Extremity Extremity Narrative: There is a scabbed wound without an abscess or localized swelling posteriorly left lower leg, about 6 cm proximal to the ankle. It is nontender. However, medially and anterior about the lower leg from this wound there is warm redness without any fluctuance or signs of an abscess that is very tender. No lymphangitis. He can move the ankle after I remove the boot without significant discomfort in the joint. There is no inguinal lymphadenopathy. There are no other areas of warm erythema. Good sensation in all toes with brisk cap refill. Neuro oriented x3, no focal motor deficits and no sensory deficits noted Sensorium / Orientation: alert Psych mental status grossly normal and thought process normal Skin Skin Narrative: See extremity exam for wound description. No abscesses left lower extremity. Rashes: no rashes MDM MDM MDM Narrative Medical decision making narrative: This appears to be an early cellulitis related to this wound. There is no abscess and nothing that needs drained. I am giving him an injection of Ancef here followed by Timothy and he can follow-up with [employer]. where he is already established. The patient does speak Hungarian and Indonesian as does his family member, I am not fluent in Hungarian but I speak enough that we all understood each other and all questions were answered in addition to a request for some more pain medication hydrocodone which was helping and he is out of. I asked them if they felt we needed an engineering group manager and they said no. I baljit a line around the erythematous area with a skin marking pen. Discharge Plan Triage Chief Complaint: Wound ED Provider: Willie Avendano Dx/Rx/DC Orders Clinical Impression: Cellulitis of left leg Instructions: ED Cellulitis Prescriptions: New cephalexin [cephalexin] 500 mg capsule 500 mg PO Q6 Qty: 40 0RF Continued Humulin N NPH U-100 Insulin 100 unit/mL suspension See Rx Instructions subcut BID Rx Instructions: 28 units QAM 25 units Qpm subcut twice a day; albuterol sulfate 90 mcg/actuation HFA aerosol inhaler 2 puff inhalation Q4H PRN (Reason: shortness of breath or wheezing) Qty: 8.5 3RF fluticasone propion-salmeterol [Wixela Inhub] 500-50 mcg/dose blister with device 1 inh inhalation BID Qty: 60 3RF ondansetron 4 MG tablet 4 mg PO Q8H PRN PRN (Reason: Nausea) Qty: 10 0RF loratadine [Claritin] 10 mg tablet 10 mg PO DAILY Qty: 30 0RF Allergy Eye (naphazoline-phen) 0.025-0.3 % drops 1 drp EACH EYE BID PRN (Reason: eye irritation) Qty: 15 0RF benzonatate 100 MG capsule 200 mg PO TID PRN PRN (Reason: Cough) Qty: 20 0RF albuterol sulfate [Ventolin HFA] 1 INHALER inhaler 2 puff inhalation Q4H PRN PRN (Reason: Wheezing) Qty: 1 0RF naproxen [Naprosyn] 500 mg tablet 500 mg PO BID PRN (Reason: pain) Qty: 20 0RF hydrocodone-acetaminophen 5-325 mg tablet 1 tab PO Q6H PRN (Reason: pain) 3 Days Qty: 10 0RF Primary Care Provider: Care Physician,No Primary Referrals: Corporate,Care [GROUP OF PHYSICIANS] - 2 Days for wound check Care Physician,No Primary [Primary Care Provider] - Disposition Disposition: Home, Self Care
[2022-07-04] MEDS: Cefazolin 1 GM/5 ML Vial IM (11:40)
--- NOTE | 2022-07-04 11:42 | ED.RN ---
Significant delay in receiving ancef from pharmacy, when called and checked on medication was being reconstituted and was taking time to do so. Patient aware of delay
== END 2022-07-04 12:03 | disposition home or self-care (01) ==
PROVIDERS: Emergency Provider Emergency Medicine; Visit Provider Emergency Medicine
DX: L03.116 Cellulitis of left lower limb (principal); E11.9 Type 2 diabetes mellitus without complications; Z79.4 Long term (current) use of insulin; Z86.16 Personal history of COVID-19
CPT/HCPCS: 96372; 99282

== ENCOUNTER → 2022-07-07 | Outpatient (CLI) | payer OTHER, SELFPAY ==
--- NOTE | 2022-07-07 16:01 | VDLE_ITS ---
Reason For Study: Swelling Procedure LEFT This is a venous duplex using B-mode, color GSV is normal. flow and spectral Doppler. CFV is compressible, spontaneous, phasic, Exam performed in department. competent, and demonstrates normal A preliminary report was called and/or faxed augmentation. to [facility]. FV is compressible, spontaneous, phasic, competent and demonstrates normal augmentation. POP V is compressible, spontaneous, phasic, competent and demonstrates normal augmentation. T/P Trunk is compressible. PTV is compressible. LT PerV is compressible. Nonvascularized structure noted in the distal calf at area of injury. VL/Venous Duplex US, Unilateral Interpretation Summary Deep veins of the left lower extremity are patent and compressible segmentally. There is no evidence of left lower extremity deep vein thrombosis. Valvular competence appears intac t within the proximal deep venous system on the left . The left great saphenous vein appears patent a nd compressible segmentally. A non-vascular structure is noted in the left distal calf, which m ay represent a hematoma. Clinical correlation is advised. Ordering Physician: Efrem Rhodes Performed By: Margie Swanson RVT
== END | disposition home or self-care (01) ==
PROVIDERS: Referring Provider Emergency Medicine; Visit Provider Emergency Medicine
DX: R60.0 Localized edema (principal); L03.116 Cellulitis of left lower limb
CPT/HCPCS: 93971

== ENCOUNTER → 2022-08-26 | Outpatient (CLI) | payer OTHER, SELFPAY ==
--- NOTE | 2022-08-26 13:54 | VDLE_ITS ---
Reason For Study: Cellulitis LLE Procedure LEFT This is a venous duplex using B-mode, color GSV is normal. flow and spectral Doppler. CFV is compressible, spontaneous, phasic, Exam performed in department. competent, and demonstrates normal A preliminary report was called and/or faxed augmentation. to [facility]. FV is compressible, spontaneous, phasic, competent and demonstrates normal augmentation. POP V is compressible, spontaneous, phasic, competent and demonstrates normal augmentation. T/P Trunk is compressible. PTV is compressible. LT PerV is compressible. VL/Venous Duplex US, Unilateral Interpretation Summary Deep veins of the left lower extremity are patent and compressible segmentally. There is no evidence of left lower extremity deep vein thrombosis. Valvular competence appears intac t within the proximal deep venous system on the left . The left great saphenous vein appears patent a nd compressible segmentally. Ordering Physician: Hussein Wolfe Performed By: Margie Swanson RVT
== END | disposition home or self-care (01) ==
PROVIDERS: Referring Provider Family Medicine; Visit Provider Family Medicine
DX: L03.116 Cellulitis of left lower limb (principal)
CPT/HCPCS: 93971

== ENCOUNTER → 2022-09-02 | Outpatient (CLI) | payer OTHER, SELFPAY ==
[2022-09-02 15:11] LABS: Absolute Lymphocyte Count 1.13 X10^3/uL (0.83-4.51); Absolute Neutrophil Count 5.8 X10^3/uL (2.0-7.7); Basophil# 0.02 X10^3/uL; Basophil% 0.3 % (0-1); Eosinophil# 0.42 X10^3/uL; Eosinophils% 5.3 % (0-5); Hematocrit 41.9 % (40-54); Lymphocyte # 1.13 X10^3/ul (0.83-4.51); Lymphocyte % 14.1 % (19-41); Mean Corp Hgb Conc 33.4 g/dL (32-36); Mean Corpuscular Hgb 27.7 pg (27.0-32.0); Mean Corpuscular Volume 82.8 fL (80-94); Mean Platelet Vol. 9.1 fl (6.2-12.0); Monocyte# 0.63 X10^3/uL; Monocyte% 7.9 % (0-10); NRBC Flagged by Analyzer 0 % (0-5); Neutrophil # 5.75 X10^3/uL (2.7-7.7); Neutrophil % 71.9 % (47-70); Platelet Count 263 K/mm3 (150-450); RBC Distribution Width CV 14.2 % (11.6-14.6); RBC Distribution Width SD 42.7 fl (35.1-43.9); Red Blood Count 5.06 M/mm3 (4.6-6.2)
[2022-09-02 15:34] LABS: ALB/GLOB Ratio 0.7 RATIO (0.9-2.4); AST(SGOT) 32 U/L (15-37); Alanine Aminotransfer ALT/SGPT 49 U/L (16-61); Albumin, Serum 2.9 g/dL (3.2-5.0); Alkaline Phosphatase 159 U/L (45-117); Anion Gap 7 (5-15); BUN 15 mg/dL (7-18); BUN/Creat Ratio 17.5 RATIO (10-20); Calcium,Total 8.9 mg/dL (8.5-10.1); Chloride 107 mmol/L (98-107); Cholesterol 167 mg/dL (200); Creatinine, Serum 0.86 mg/dL (0.70-1.30); EST Glomerular Filtration Rate 103 mL/min (>60); Est Glom Filt Rate - Afr Amer 125 mL/min (>60); Globulin 4.3 g/dL (2.2-4.2); Glucose 226 mg/dL (74-106); High Density Lipoprotein 40 mg/dL; Potassium 4.1 mmol/L (3.5-5.1); Protein, Total 7.2 g/dL (6.4-8.2); Sodium Level 140 mmol/L (136-145); Triglycerides 152 mg/dL; Very Low Density Lipoprotein 30 mg/dL (5-40)
== END | disposition home or self-care (01) ==
LOC: BIMLAB 13:40
PROVIDERS: PCP Internal Medicine; Referring Provider Internal Medicine; Visit Provider Internal Medicine
DX: E11.9 Type 2 diabetes mellitus without complications (principal)
CPT/HCPCS: 36415; 80053; 80061; 85025

== ENCOUNTER → 2022-09-10 | Outpatient (CLI) | payer OTHER, SELFPAY ==
--- NOTE | 2022-09-10 15:15 | CT_ITS ---
EXAM: CT LEFT LOWER EXTREMITY WITHOUT INTRAVENOUS CONTRAST CLINICAL INDICATION: Left Calf Swelling. Abnormal Duplex TECHNIQUE: Helically acquired images were obtained of the left lower extremity without intravenous contrast. 2-D reformats were performed by the technologist. This CT exam was performed using one or more of the following dose reduction techniques: automated exposure control, adjustment of the mA and/or kV according to patient size, and/or use of iterative reconstruction technique. This report was created using [employer] report generation technology. CONTRAST: IV 100mL Isovue-300 COMPARISON: None. FINDINGS: BONES/JOINTS: There are no osseous abnormalities. No acute fracture. No subluxation. Normal alignment. Preservation of the joint space. No sclerotic or destructive changes. SOFT TISSUES: There is edema in the subcutaneous tissues over the knee and lower leg. There is no focal fluid collection or mass. There are no abnormalities within the muscles. There are several varices in the subcutaneous tissues of the lower leg. No radiopaque foreign body. CT/Extremity Lower WITH Contrast IMPRESSION: Edema in the subcutaneous tissues over the knee and lower leg. There are subcutaneous varices in the lower leg. No osseous abnormalities are identified. There are no masses or focal fluid collections. Electronically Signed: Harrison Reyes MD at 20:38 EDT ,
== END | disposition home or self-care (01) ==
PROVIDERS: PCP Internal Medicine; Referring Provider Internal Medicine; Visit Provider Internal Medicine
DX: M79.89 Other specified soft tissue disorders (principal); R93.6 Abnormal findings on diagnostic imaging of limbs; M79.662 Pain in left lower leg
CPT/HCPCS: 73701; Q9967

== ENCOUNTER → 2022-10-01 | Outpatient (CLI) | payer OTHER, SELFPAY ==
[2022-10-01 17:02] LABS: Anion Gap 4 (5-15); BUN 22 mg/dL (7-18); BUN/Creat Ratio 31.7 RATIO (10-20); Calcium,Total 8.9 mg/dL (8.5-10.1); Chloride 107 mmol/L (98-107); EST Glomerular Filtration Rate 131 mL/min (>60); Est Glom Filt Rate - Afr Amer 159 mL/min (>60); Glucose 54 mg/dL (74-106); Potassium 3.8 mmol/L (3.5-5.1); Sodium Level 138 mmol/L (136-145)
== END | disposition home or self-care (01) ==
LOC: BIMLAB 15:58
PROVIDERS: PCP Internal Medicine; Referring Provider Internal Medicine; Visit Provider Internal Medicine
DX: E11.9 Type 2 diabetes mellitus without complications (principal); I10 Essential (primary) hypertension
CPT/HCPCS: 36415; 80048

== ENCOUNTER → 2023-04-15 | Outpatient (CLI) | payer MEDICAID, SELFPAY ==
[2023-04-15 15:35] LABS: ALB/GLOB Ratio 0.7 RATIO (0.9-2.4); AST(SGOT) 18 U/L (15-37); Alanine Aminotransfer ALT/SGPT 33 U/L (16-61); Albumin, Serum 2.7 g/dL (3.2-5.0); Alkaline Phosphatase 154 U/L (45-117); Anion Gap 4 (5-15); BUN 25 mg/dL (7-18); BUN/Creat Ratio 25.5 RATIO (10-20); Calcium,Total 8.6 mg/dL (8.5-10.1); Chloride 109 mmol/L (98-107); Creatinine, Serum 0.98 mg/dL (0.70-1.30); EST Glomerular Filtration Rate 88 mL/min (>60); Est Glom Filt Rate - Afr Amer 107 mL/min (>60); Globulin 4.1 g/dL (2.2-4.2); Glucose 292 mg/dL (74-106); Potassium 4.5 mmol/L (3.5-5.1); Protein, Total 6.8 g/dL (6.4-8.2); Sodium Level 138 mmol/L (136-145)
[2023-04-15 15:56] LABS: Hemoglobin A1c 9.2 % (3.8-5.6)
[2023-04-15 16:41] LABS: Microalbumin:Creatinine Ratio 2677.2 mg/g CRE (<30 mg/g CRE)
== END | disposition home or self-care (01) ==
PROVIDERS: PCP Internal Medicine; Referring Provider Internal Medicine; Visit Provider Internal Medicine
DX: E11.9 Type 2 diabetes mellitus without complications (principal)
CPT/HCPCS: 36415; 80053; 82043; 82570; 83036

== ENCOUNTER 2023-04-16 10:17 | Emergency (ER) | payer MEDICAID, SELFPAY ==
[2023-04-16 10:17] VITALS: BP 165/80; PULSE 90; RESP 20; TEMP 36.2; O2SAT 97; BMI 35.0
--- NOTE | 2023-04-16 11:25 | RAD_ITS ---
STUDY: X-RAY CHEST REASON FOR EXAM: Male, 42 years old. Cough, fever TECHNIQUE: PA and lateral views of the chest. COMPARISON: Comparison is made with prior study dated May 13, 2022. FINDINGS: Limited inspiratory effort. Increased markings at the lung bases suggestive of a bibasilar atelectasis and/or early infiltrates. Follow-up is recommended. There is no demonstrated pleural abnormality. Normal size heart. Normal mediastinum and yury. Normal visualized pulmonary arteries. Normal visualized aortic arch and descending thoracic aorta. Normal visualized thoracic spine. Normal visualized ribs, clavicles, and shoulders. There is no demonstrated abnormality of the visualized soft tissue structures of the upper abdomen. RAD/Chest PA and Lateral IMPRESSION: Limited inspiratory effort with increased markings at the lung bases suggestive of mild atelectasis and/or early infiltrate. Follow-up recommended. Electronically Signed: Ori Mcknight MD at 11:40 EDT ,
--- NOTE | 2023-04-16 13:09 | EDS_ITS ---
HPI HPI - URI History of Present Illness Chief Complaint: Cold Sx Informant: patient Narrative Narrative: Patient complaining of respiratory infection symptoms for about 10 or 11 days. He was sick and now his has the same thing they are both patient is here to be seen. He has had subjective fevers and chills, headaches, sore throat, cough now with a little bit of blood, not really dyspneic. No known history of asthma or other lung/heart issues. No travel out of the area/country recently. ROS ROS ED Constitutional Constitutional ED: Reports chills, fever(s) and subjective Eyes Eyes: Denies change in vision or diplopia ENT ENT ED: Reports nasal congestion, rhinorrhea and sore throat; Denies ear pain Cardiovascular Cardiovascular: Denies chest pain or palpitations Respiratory/Chest Respiratory/Chest: Reports cough and sputum; Denies dyspnea Gastrointestinal Gastrointestinal: Denies abdominal pain, diarrhea, nausea or vomiting Genitourinary Genitourinary ED: Denies dysuria or hematuria Musculoskeletal Musculoskeletal: Denies myalgias or neck pain Integumentary Denies abscess or rash Neurologic Neurologic: Reports headache(s); Denies paresthesias or weakness Psychiatric Psychiatric: Denies depression or suicidal thoughts Endocrine Endocrinology: Denies polydipsia or polyuria [facility] Medical History Abnormal ultrasound of lower extremity COVID-19 Diabetes mellitus History of cataract History of proliferative retinopathy due to diabetes mellitus History of vitreous hemorrhage of left eye Hypertension Pain of left calf Pulmonary embolism Swelling of left lower extremity Type 2 diabetes mellitus Varicose veins of bilateral lower extremities with other complications Home Medications fluticasone 500 mcg-salmeterol 50 mcg/dose blistr powdr for inhalation (Wixela Inhub) 1 inh inhalation BID #60 ea 07/04/21 [Rx Last Taken Unknown] loratadine 10 mg tablet (Claritin) 10 mg PO DAILY #30 tabs 04/18/22 [Rx Last Taken Unknown] naphazoline 0.025 %-pheniramine 0.3 % eye drops (Allergy Eye (naphazoline-pheniramine)) 1 drp EACH EYE BID PRN eye irritation #15 mL 04/18/22 [Rx Last Taken Unknown] albuterol sulfate 90 mcg/actuation aerosol inhaler (Ventolin HFA) 2 puff inhalation Q4H PRN PRN Wheezing ##1 05/13/22 [Rx Last Taken Unknown] naproxen 500 mg tablet (Naprosyn) 500 mg PO BID PRN pain #20 tabs 06/24/22 [Rx Last Taken Unknown] insulin glargine 100 unit/mL (3 mL) subcutaneous pen 15 unit (0.15 mL) subcut QP M 3 months #13.5 mL 08/28/22 [Rx Last Taken Unknown] comp.stocking,thigh,long,large #1 ea 10/01/22 [Rx Last Taken Unknown] metformin 500 mg tablet,extended release 24hr 1,000 mg PO QPM 2 months #120 tabs 10/01/22 [Rx Last Taken Unknown] glimepiride 4 mg tablet 4 mg PO BID #180 tabs 11/20/22 [Rx Last Taken Unknown] hydrochlorothiazide 25 mg tablet 25 mg PO DAILY #60 tabs 11/20/22 [Rx Last Taken Unknown] losartan 100 mg tablet 100 mg PO DAILY #90 tabs 11/20/22 [Rx Last Taken Unknown] albuterol sulfate 90 mcg/actuation aerosol inhaler (Ventolin HFA) 1 - 2 puff inhalation Q4H PRN PRN Wheezing ##1 04/16/23 [Rx Last Taken Unknown] benzonatate 100 mg capsule 200 mg PO TID PRN PRN Cough #20 CAPSULES 04/16/23 [Rx Last Taken Unknown] levofloxacin 750 mg tablet 750 mg PO DAILY #5 tabs 04/16/23 [Rx Last Taken Unknown] Allergy/AdvReac Type Severity Reaction Status Date / Time No Known Allergies Allergy Verified 02/12/23 17:17 Family History Father Diabetes Brother Diabetes Social History Smoking Status: Never smoker alcohol intake: never substance use type: does not use diet: diabetic what type of physical activity do you participate in: walking do you feel safe at home: Yes EXAM Physical Exam Const Vital Signs: 04/16/23 10:17 04/16/23 10:42 Temperature 97.2 F L Temperature Source Temporal Pulse Rate 90 Respiratory Rate 20 H Respiratory Effort Normal Respiratory Depth Normal Respiratory Pattern Normal Blood Pressure 165/80 H Blood Pressure Mean 108 Pulse Ox 97 Oxygen Delivery Method Room Air Positive well nourished and well developed General Appearance ED: well developed and NAD HEENT Reports moist mucous membranes HEENT Narrative: TMs normal bilaterally. normocephalic and atraumatic Throat: Negative for posterior oropharynx abnormal Eyes PERRL and EOMs intact bilaterally Neck no lymphadenopathy, supple and no meningeal signs Resp normal respiratory effort and clear to auscultation bilaterally Effort and Inspection: able to speak in complete sentences Cardio no murmurs Rate: regular rate; Negative for tachycardic Rhythm: regular rhythm Extremity normal to inspection Neuro oriented x3, CN's II-XII intact bilaterally and no sensory deficits noted Sensorium / Orientation: alert Motor Exam: strength 5/5 throughout Psych mental status grossly normal Skin Lesions: no lesions Rashes: no rashes MDM MDM MDM Narrative Medical decision making narrative: Given the minor hemoptysis I obtained a chest x-ray, 2 views of my interpretation negative for obvious pneumonia/infiltrate. No masses seen. Radiology report is reviewed and I agree with it. They did say there is a possibility of early infiltrate. COVID and influenza negative. Patient is stable with normal vital signs except for some mild hypertension and no hy poxemia. His lungs are clear. I think reasonable to treat him as acute bronchitis, however his appears to be more likely pneumonia on her x-ray and they both have the same symptoms for similar period of time so I think treating him with antibiotics is reasonable to cover atypicals. Radiography Diagnostic Testing: Clinical Impression(s) from Imaging Studies Chest X-Ray 04/16/23 11:25 IMPRESSION: Limited inspiratory effort with increased markings at the lung bases suggestive of mild atelectasis and/or early infiltrate. Follow-up recommended. Electronically Signed: Ori Mcknight MD at 11:40 EDT , Discharge Plan Triage Chief Complaint: Cold Sx ED Provider: Willie Avendano Dx/Rx/DC Orders Clinical Impression: Acute bronchitis Instructions: Acute Bronchitis Prescriptions: New benzonatate [benzonatate] 100 mg capsule 200 mg PO TID PRN PRN (Reason: Cough) Qty: 20 0RF albuterol sulfate [Ventolin HFA] 90 mcg/actuation HFA aerosol inhaler 1 - 2 puff inhalation Q4H PRN PRN (Reason: Wheezing) Qty: 1 0RF levofloxacin 750 mg tablet 750 mg PO DAILY Qty: 5 0RF No Action fluticasone propion-salmeterol [Wixela Inhub] 500-50 mcg/dose blister with device 1 inh inhalation BID Qty: 60 3RF insulin glargine 100 unit/mL (3 mL) insulin pen 15 unit subcut QPM 90 Days Qty: 13.5 2RF metformin 500 mg tablet extended release 24hr 1,000 mg PO QPM 60 Days Qty: 120 2RF (DME) comp.stocking,thigh,long,large Misc See Rx Instructions .Route Qty: 1 2RF Rx Instructions: 20 - 30 mmHg glimepiride 4 mg tablet 4 mg PO BID Qty: 180 2RF Rx Instructions: administer with breakfast losartan 100 mg tablet 100 mg PO DAILY Qty: 90 3RF hydrochlorothiazide 25 mg tablet 25 mg PO DAILY Qty: 60 2RF loratadine [Claritin] 10 mg tablet 10 mg PO DAILY Qty: 30 0RF Allergy Eye (naphazoline-phen) 0.025-0.3 % drops 1 drp EACH EYE BID PRN (Reason: eye irritation) Qty: 15 0RF albuterol sulfate [Ventolin HFA] 1 INHALER inhaler 2 puff inhalation Q4H PRN PRN (Reason: Wheezing) Qty: 1 0RF naproxen [Naprosyn] 500 mg tablet 500 mg PO BID PRN (Reason: pain) Qty: 20 0RF Primary Care Provider: Soraya Beltran Referrals: Soraya Beltran MD [Primary Care Provider] - 3-5 Days Activity Restrictions/Additional Instructions: Take the levofloxacin as prescribed until completed. You may try the inhaler if you are having shortness of breath, and the Perles as needed for coughing. Is possible you could have pneumonia. Make sure you follow-up with your doctor. Print Language: [place] Disposition Disposition: Home, Self Care
[2023-04-16 13:25] VITALS: PULSE 89; O2SAT 100
== END 2023-04-16 13:26 | disposition home or self-care (01) ==
PROVIDERS: Emergency Provider Emergency Medicine; PCP Internal Medicine; Visit Provider Emergency Medicine
DX: J20.9 Acute bronchitis, unspecified (principal); E11.319 Type 2 diabetes mellitus with unspecified diabetic retinopathy without macular edema; Z79.4 Long term (current) use of insulin; I10 Essential (primary) hypertension; Z79.84 Long term (current) use of oral hypoglycemic drugs; Z79.899 Other long term (current) drug therapy; Z86.16 Personal history of COVID-19
CPT/HCPCS: 71046; 87428; 99282

== ENCOUNTER → 2023-04-24 | Outpatient (CLI) | payer MEDICAID, SELFPAY ==
--- NOTE | 2023-04-24 08:34 | ART_ITS ---
Reason For Study: Bilateral Claudication Procedure A bilateral lower extremity continuous wave Doppler with analog waveform analysis,segmental pressures,and ankle brachial indexes without exercise. Left Segmental Pressures Left brachial= 125mmHg. Left posterior tibial artery = 180mmHg. Left dorsalis pedis artery = 157mmHg. Left digit = 138 mmHg. The left posterior tibial artery waveforms are triphasic. The left dorsalis pedis waveforms are triphasic. Right Segmental Pressures Right brachial= 138mmHg. Right posterior tibial artery = 176mmHg. Right dorsalis pedis artery = 163mmHg. Right digit = 114 mmHg. The right posterior tibial artery waveforms are triphasic. The right dorsalis pedis waveforms are triphasic. Indices The right ankle brachial index by the posterior tibial artery is 1.28. The right ankle brachial index by the dorsalis pedis is 1.18. The right digital-brachial index is 0.83. The left ankle brachial index by the posterior tibial artery is 1.30. The left ankle brachial index by the dorsalis pedis is 1.14. The left digital-brachial index is 1.00. VL/Lower Ext Art Exam w/o Exercis Interpretation Summary Right RENEE 1.28, normal. TBI and Doppler/PVR waveforms of the right leg normal a t rest. Left RENEE 1.3, normal. TBI and Doppler/PVR waveforms of the left leg normal at r est. Ordering Physician: Genoveva Valdes Referring Physician: Soraya Beltran Performed By: Rashi Lopez, RVT
--- NOTE | 2023-04-24 08:34 | VDLE_ITS ---
Reason For Study: Bilateral Leg Swelling RIGHT LEFT CFV is compressible, spontaneous, phasic, CFV is compressible, spontaneous, phasic, competent and demonstrates normal competent, and demonstrates normal augmentation. augmentation. FV is compressible, spontaneous, phasic, FV is compressible, spontaneous, phasic, competent and demonstrates normal competent and demonstrates normal augmentation. augmentation. POP V is compressible, spontaneous, phasic, POP V is compressible, spontaneous, phasic, competent and demonstrates normal competent and demonstrates normal augmentation. augmentation. T/P Trunk is compressible. T/P Trunk is compressible. PTV is compressible. PTV is compressible. RT PerV is compressible. LT PerV is compressible. SFJ is competent and measures 0.60 x 0.59 cm. SFJ is competent and measures 0.61 x 0.69 cm. GSV proximal thigh measures 0.48 x 0.52 cm. GSV proximal thigh measures 0.40 x 0.42 cm. GSV at knee measures 0.37 x 0.37 cm. GSV at knee measures 0.62 x 0.68 cm. GSV above knee is INCOMPETENT for greater GSV INCOMPETENT throughout for greater than than 0.5 seconds. 0.5 seconds. GSV below knee is competent. ASV proximal calf is INCOMPETENT for greater SSV proximal calf is competent and measures than 0.5 seconds and measures 0.73 x 0.76 cm. 0.25 x 0.27 cm. ASV mid calf is INCOMPETENT for greater than Procedure 0.5 seconds and measures 0.57 x 0.68 cm. Exam performed in department. ASV distal calf is INCOMPETENT for greater The exam was diagnostic. than 0.5 seconds and measures 0.29 x 0.45 cm. SSV proximal calf is competent and measures 0.30 x 0.33 cm. Lt Perforating vein at mid thigh is INCOMPETENT for greater than 0.5 seconds and measures 0.48 cm. in long axis. Multiple varicosities noted throughout left calf. VL/Venous Duplex US - Rodney Extrem Interpretation Summary Deep veins of the bilateral lower extremities are patent and compressible segme ntally. There is no evidence of bilateral lower extremity deep vein thrombosis. The bilateral great saphenous veins appear patent and compressible segmentally. Positive for reflux in the right great saphenous vein Positive for reflux in the left great saphenous vein, accessory saphenous vein, thigh inside sales coordinator Ordering Physician: Genoveva Valdes Referring Physician: Soraya Beltran Performed By: Rashi Lopez RVT
== END | disposition home or self-care (01) ==
LOC: CVS 08:33
PROVIDERS: PCP Internal Medicine; Referring Provider Physician Assistant; Visit Provider Physician Assistant
DX: I83.893 Varicose veins of bilateral lower extremities with other complications (principal); I73.9 Peripheral vascular disease, unspecified; M79.662 Pain in left lower leg
CPT/HCPCS: 93923; 93924; 93970

== ENCOUNTER → 2024-05-23 | Outpatient (CLI) | payer OTHER, SELFPAY ==
[2024-05-23 12:17] LABS: Absolute Lymphocyte Count 1.89 X10^3/uL (0.83-4.51); Absolute Neutrophil Count 8.4 X10^3/uL (2.0-7.7); Basophil# 0.06 X10^3/uL; Basophil% 0.5 % (0-1); Eosinophil# 0.32 X10^3/uL; Eosinophils% 2.8 % (0-5); Hematocrit 42.3 % (40-54); Hemoglobin 14.1 g/dL (13.0-16.5); Lymphocyte # 1.89 X10^3/ul (0.83-4.51); Lymphocyte % 16.5 % (19-41); Mean Corp Hgb Conc 33.3 g/dL (32-36); Mean Corpuscular Hgb 27.2 pg (27.0-32.0); Mean Corpuscular Volume 81.5 fL (80-94); Mean Platelet Vol. 9.8 fl (6.2-12.0); Monocyte# 0.71 X10^3/uL; Monocyte% 6.2 % (0-10); NRBC Flagged by Analyzer 0 % (0-5); Neutrophil # 8.41 X10^3/uL (2.7-7.7); Neutrophil % 73.6 % (47-70); Platelet Count 300 K/mm3 (150-450); RBC Distribution Width CV 13.5 % (11.6-14.6); RBC Distribution Width SD 39.9 fl (35.1-43.9); Red Blood Count 5.19 M/mm3 (4.6-6.2); White Blood Count 11.4 K/mm3 (4.4-11.0)
[2024-05-23 12:50] LABS: ALB/GLOB Ratio 0.8 RATIO (0.9-2.4); AST(SGOT) 18 U/L (15-37); Alanine Aminotransfer ALT/SGPT 35 U/L (16-61); Albumin, Serum 3.4 g/dL (3.2-5.0); Alkaline Phosphatase 164 U/L (45-117); Anion Gap 7 (5-15); BUN 43 mg/dL (7-18); BUN/Creat Ratio 31.6 RATIO (10-20); Calcium,Total 9.4 mg/dL (8.5-10.1); Chloride 105 mmol/L (98-107); Cholesterol 181 mg/dL (200); Creatinine, Serum 1.36 mg/dL (0.70-1.30); EST Glomerular Filtration Rate 60 mL/min (>60); Est Glom Filt Rate - Afr Amer 73 mL/min (>60); Globulin 4.4 g/dL (2.2-4.2); Glucose 168 mg/dL (74-106); High Density Lipoprotein 34 mg/dL; Potassium 4.4 mmol/L (3.5-5.1); Protein, Total 7.8 g/dL (6.4-8.2); Sodium Level 138 mmol/L (136-145); Triglycerides 225 mg/dL; Very Low Density Lipoprotein 45 mg/dL (5-40)
[2024-05-23 13:36] LABS: Microalbumin:Creatinine Ratio 1205.7 mg/g CRE (<30 mg/g CRE)
== END | disposition home or self-care (01) ==
LOC: BIMLAB 10:35
PROVIDERS: PCP Internal Medicine; Visit Provider Internal Medicine
DX: E11.9 Type 2 diabetes mellitus without complications (principal); I10 Essential (primary) hypertension
CPT/HCPCS: 36415; 80053; 80061; 82043; 82570; 85025

== ENCOUNTER → 2025-05-12 | Outpatient (CLI) | payer SELFPAY ==
[2025-05-12 12:41] LABS: Absolute Lymphocyte Count 1.55 X10^3/uL (0.83-4.51); Basophil# 0.04 X10^3/uL; Basophil% 0.5 % (0-1); Eosinophil# 0.54 X10^3/uL; Eosinophils% 6.6 % (0-5); Hematocrit 39.6 % (40-54); Hemoglobin 13.7 g/dL (13.0-16.5); Lymphocyte # 1.55 X10^3/ul (0.83-4.51); Mean Corp Hgb Conc 34.6 g/dL (32-36); Mean Corpuscular Hgb 28.7 pg (27.0-32.0); Mean Platelet Vol. 10.1 fl (6.2-12.0); Monocyte# 1.01 X10^3/uL; Monocyte% 12.4 % (0-10); NRBC Flagged by Analyzer 0 % (0-5); Neutrophil % 61.3 % (47-70); Platelet Count 258 K/mm3 (150-450); RBC Distribution Width CV 13.5 % (11.6-14.6); RBC Distribution Width SD 41.2 fl (35.1-43.9); Red Blood Count 4.77 M/mm3 (4.6-6.2); White Blood Count 8.2 K/mm3 (4.4-11.0)
[2025-05-12 14:28] LABS: Cholesterol 146 mg/dL (<=200); High Density Lipoprotein 28 mg/dL; Low Density Lipoprotein Calc. 44 mg/dL; PSA,Total - Annual Screen 0.73 ng/mL (0.02-4.00); Triglycerides 369 mg/dL; Very Low Density Lipoprotein 74 mg/dL (5-40); cholesterol:hdl ratio screen 5.25
[2025-05-12 14:42] LABS: ALB/GLOB Ratio 1.1 RATIO (0.9-2.4); AST(SGOT) 26 U/L (<=37); Alanine Aminotransfer ALT/SGPT 27 U/L (<=46); Albumin, Serum 3.4 g/dL (3.5-5.0); Alkaline Phosphatase 134 U/L (40-129); Anion Gap 10 (5-15); BUN 30 mg/dL (4-19); BUN/Creat Ratio 25.3 RATIO (10-20); Calcium,Total 8.7 mg/dL (7.6-11.0); Carbon Dioxide 20.3 mmol/L (21.0-32.0); Chloride 103 mmol/L (98-108); Creatinine, Serum 1.18 mg/dL (0.70-1.20); EST Glomerular Filtration Rate 77 (>60); Globulin 3.2 g/dL (2.2-4.2); Glucose 234 mg/dL (70-99); Potassium 4.5 mmol/L (3.3-5.1); Protein, Total 6.6 g/dL (5.9-8.4); Sodium Level 134 mmol/L (133-145); Total Bilirubin 0.32 mg/dL (0.00-1.30)
== END | disposition home or self-care (01) ==
PROVIDERS: PCP Internal Medicine; Referring Provider Internal Medicine; Visit Provider Internal Medicine
DX: E11.9 Type 2 diabetes mellitus without complications (principal); Z12.5 Encounter for screening for malignant neoplasm of prostate
CPT/HCPCS: 36415; 80053; 80061; 84153; 85025; G0103